=== PATIENT | male | born 1970 | race African-American/Black ===

== ENCOUNTER 2018-03-24 05:11 | Emergency (ER) | payer OTHER ==
[~2018-03-24] VITALS: Ht 180.3 cm; Wt 110.4 kg
[2018-03-24 05:18] VITALS: Ht 180.3 cm; Wt 110.4 kg
[2018-03-24 07:36] VITALS: BP 157/99
== END 2018-03-24 07:36 | disposition home or self-care (01) ==
LOC: ED 05:11
DX: L25.9 Unspecified contact dermatitis, unspecified cause (principal); I10 Essential (primary) hypertension
CPT/HCPCS: J1200; J2930

== ENCOUNTER 2020-11-18 14:23 | Emergency (ER) | payer BC ==
[~2020-11-18] VITALS: Ht 180.3 cm; Wt 121.1 kg
[2020-11-18 14:41] VITALS: Ht 180.3 cm; Wt 121.1 kg
[2020-11-18] MEDS ORDERED: MOTION SICKNESS25 M2 PO (15:53)
[2020-11-18 16:07] VITALS: BP 172/86
== END 2020-11-18 16:07 | disposition home or self-care (01) ==
LOC: ED 14:23
DX: H93.11 Tinnitus, right ear (principal); R42 Dizziness and giddiness; I10 Essential (primary) hypertension